=== PATIENT | male | born 1990 | race Caucasian/White ===

== ENCOUNTER 2018-09-26 13:09 | Emergency (ER) | payer BC, OTHER ==
[2018-09-26] MEDS: methylPREDNISolone INJ 125 MG/2 ML VIAL (J2930) IV (14:12)
[2018-09-26] MEDS: FAMOTIDINE INJ 20MG/2ML VIAL (S0028) IVP (14:12)
== END 2018-09-26 15:59 | disposition home or self-care (01) ==
LOC: M ED 13:09
DX: T78.40XA Allergy, unspecified, initial encounter (principal)
CPT/HCPCS: J2930